=== PATIENT | female | born 1965 | race American Indian/Alaskan Native ===

== ENCOUNTER 2016-06-14 09:30 | Emergency (ER) | payer BC ==
[2016-06-14 10:44] LABS: Basophils % (Auto) 1.2 % (0.0-1.8); Eosinophils % (Auto) 2.6 % (0.0-4.3); Hematocrit 42.5 % (30.3-42.9); Hemoglobin 13.9 gm/dl (10.1-14.3); Mean Corpuscular HGB Conc 33 % (30-34); Mean Corpuscular Hemoglobin 28 pg (28-32); Mean Corpuscular Volume 85 fl (79-97); Platelet Count 286 K/mm3 (140-440); Red Blood Count 4.99 M/mm3 (3.65-5.03); Red Cell Distribution Width 13.4 % (13.2-15.2); White Blood Count 4.1 K/mm3 (4.5-11.0)
[2016-06-14] MEDS ORDERED: MORPHINE IV ONE (11:01)
[2016-06-14] MEDS ORDERED: APRESOLINE IV ONE (11:01)
--- NOTE | 2016-06-14 11:03 | Cat Scan Report ---
CRANIAL CT SCAN: History: Headache, accelerated hypertension. Serial contiguous axial images were obtained through the cranium. Intravenous contrast material was not administered. The ventricles are normal in size and appearance. There is no mass effect or midline shift. No areas of abnormally increased or decreased attenuation are seen. No mass lesion is seen. The mastoid air cells and visualized portions of the sinuses are normal. IMPRESSION: Cranial CT scan within normal limits.
--- NOTE | 2016-06-14 11:06 | Emergency Department Report ---
HPI - General Chief Complaint: Headache Time Seen by Provider: 06/14/16 10:15 - HPI HPI: 50-year-old Afro[place] female presents to the emergency Department, after driving herself in to be seen, with complaint of a left-sided headache. The patient says that she was feeling "sick" at work that included this headache, some photophobia, left eye blurry vision and some nausea with vomiting. She said that the photophobia and left eye blurry vision occurred while driving here but has since resolved. She no longer has any nausea or vomiting as well. She does continue to have a left-sided headache. She has no past medical history other than hypothyroidism but she is not on any medications for it. Incidentally, the patient presents with very elevated blood pressure but does not have any diagnosed history of hypertension. The patient is a tobacco smoker. She drinks about 2-3 cups of coffee per morning. She did not take anything for symptoms prior to presentation. She does not have a primary care doctor. No recent travel or sick contacts at home. ED Past Medical Hx - Past Medical History Previous Medical History?: No - Surgical History Past Surgical History?: Yes Additional Surgical History: fibroids, hysterectomy - Social History Smoking Status: Current Every Day Smoker Substance Use Type: None - Medications Home Medications: Home Medications Medication Instructions Recorded Confirmed Last Taken Type amLODIPine [Norvasc] 5 mg PO DAILY #30 tab 06/14/16 Unknown Rx ED Review of Systems ROS: Stated complaint: LEFT SIDE OF HEAD PAIN Other details as noted in HPI Comment: All other systems reviewed and negative Constitutional: denies: chills, fever Eyes: vision change. denies: eye discharge ENT: denies: ear pain, throat pain Respiratory: denies: cough, shortness of breath, wheezing Cardiovascular: denies: chest pain, palpitations Gastrointestinal: nausea, vomiting. denies: abdominal pain, diarrhea Genitourinary: denies: urgency, dysuria, discharge Musculoskeletal: denies: back pain, joint swelling, arthralgia Skin: denies: rash, lesions Neurological: weakness. denies: headache, paresthesias Physical Exam - Physical Exam Vital Signs: Vital Signs 06/14/16 06/14/16 09:52 10:16 Temperature 98.0 F Pulse Rate 77 Respiratory 22 16 Rate Blood Pressure 233/117 O2 Sat by Pulse 99 99 Oximetry Physical Exam: GENERAL: The patient is well-developed well-nourished. HEENT: Normocephalic. Atraumatic. Extraocular motions are intact. Patient has moist mucous membranes. Pupils equal reactive to light bilaterally. No nystagmus. NECK: Supple. Trachea is midline. CHEST/LUNGS: Clear to auscultation. There is no respiratory distress noted. HEART/CARDIOVASCULAR: Regular. There is no tachycardia. There is no gallop rub or murmur. ABDOMEN: Abdomen is soft, nontender. Patient has normal bowel sounds. There is no abdominal distention. SKIN: Skin is warm and dry. NEURO: The patient is awake, alert, and oriented. The patient is cooperative. The patient has no focal neurologic deficits. The patient has normal speech. Cranial nerves II through XII grossly intact. No pronator drift. No dysmetria. MUSCULOSKELETAL: There is no tenderness or deformity. There is no limitation range of motion. There is no evidence of acute injury. Muscle strength 5 out of 5 for upper and lower extremity bilaterally. ED Course Vital Signs 06/14/16 06/14/16 09:52 10:16 Temperature 98.0 F Pulse Rate 77 Respiratory 22 16 Rate Blood Pressure 233/117 O2 Sat by Pulse 99 99 Oximetry ED Medical Decision Making - Lab Data Result diagrams: 06/14/16 10:36 06/14/16 10:36 - Radiology Data Radiology results: report reviewed CT of the head does not show any acute process including no hemorrhage, mass, shift, diffuse edema or skull fracture. - Medical Decision Making 50-year-old female presents with the complaint of a left-sided headache that started this morning and was associated with some nausea and vomiting and some transient blurry vision. Patient presents with very elevated blood pressure. A CT was done that does not show any bleed, shift, mass or any acute process. She was given a dose of hydralazine and a small amount of pain medication. Patient's labs are unremarkable including no signs of infection, electrolyte abnormalities, renal insufficiency and she has normal thyroid function. Upon reevaluation her blood pressure is much more reasonable and her headache has resolved. Discussed with the patient about dietary changes and smoking cessation to help with her blood pressure but she will also be started on some medium dose Norvasc. The patient will take these medications acutely. Pressure log. She will return to the ER with any worsening of her symptoms or any acute distress. - Differential Diagnosis hypertensive crisis, migraine headache, tension headache, brain bleed Critical Care Time: No Critical care attestation.: If time is entered above; I have spent that time in minutes in the direct care of this critically ill patient, excluding procedure time. ED Disposition Clinical Impression: Hypertensive urgency, Tobacco abuse Headache Qualifiers: Headache type: unspecified Headache chronicity pattern: unspecified pattern Intractability: not intractable Qualified Code(s): R51 - Headache Disposition: DISCHARGED TO HOME OR SELFCARE Is pt being admited?: No Condition: Stable Instructions: How to Stop Smoking (ED), Acute Headache (ED), Hypertension (ED) Additional Instructions: Please follow-up with a primary care doctor in the next few days. Please try and quit smoking as there is no health benefit to tobacco use. Try to stay away from foods that are high in salt and caffeinated products to help with your blood pressure. Keep a blood pressure log. I started drawn a blood pressure medication: Norvasc, to be taken once per day. Return to the emergency department with any worsening of your symptoms or any acute distress. Prescriptions: amLODIPine [Norvasc] 5 mg PO DAILY #30 tab Referrals: PRIMARY CARE, [Primary Care Provider] - 3-5 Days ISMAEL HUMPHREY MD [Staff Physician] - 3-5 Days CL KNOWLES MD [Staff Physician] - 3-5 Days IRIS VIEIRA MD [Staff Physician] - 3-5 Days Time of Disposition: 13:10
[2016-06-14 11:21] LABS: Anion Gap 17 mmol/L; Blood Urea Nitrogen 10 mg/dL (7-17); Calcium 9.9 mg/dL (8.4-10.2); Carbon Dioxide 26 mmol/L (22-30); Chloride 103.9 mmol/L (98-107); Glucose 97 mg/dL (65-100); Potassium 3.4 mmol/L (3.6-5.0); Sodium 143 mmol/L (137-145)
[2016-06-14] MEDS ORDERED: MORPHINE ONE (11:48)
[2016-06-14 12:30] VITALS: BP 175/96
== END 2016-06-14 13:29 | disposition home or self-care (01) ==
LOC: ED 09:30
DX: R03.0 Elevated blood-pressure reading, without diagnosis of hypertension (principal); R51 Headache; F17.200 Nicotine dependence, unspecified, uncomplicated
CPT/HCPCS: 36415; 70450; 80048; 84443; 85025; 93005; 93010; 96374; 96375; 99284; J0360; J2270

== ENCOUNTER 2021-04-17 12:59 | Emergency (ER) | payer SELFPAY ==
[2021-04-17] MEDS ORDERED: ASPIRIN 325 MG TAB PO ONE (13:27)
--- NOTE | 2021-04-17 13:30 | Event Note ---
ED Screening Note Date of service: 04/17/21 Time: 13:29 ED Screening Note: 55-year-old -[place] female presents to the emergency room by referral from her primary care provider. Primary care provider is concerned for chest discomfort elevated blood pressure and abnormal EKG. It was reported the patient has not been followed by healthcare provider in the last 5 to 7 years. Patient currently takes no medications on a daily basis. Blood pressure in PCP office was 200/98. This initial assessment/diagnostic orders/clinical plan/treatment(s) is/are subject to change based on patients health status, clinical progression and re- assessment by fellow clinical providers in the ED. Further treatment and workup at subsequent clinical providers discretion. Patient/guardian urged not to elope from the ED as their condition may be serious if not clinically assessed and managed. Initial orders include: Chest pain protocol has been initiated.
[2021-04-17] MEDS ORDERED: hydrALAZINE 20 MG/1 ML INJ IV ONE (14:09)
[2021-04-17 14:10] LABS: INR 0.85 (0.87-1.13)
[2021-04-17 14:11] LABS: Hematocrit 42.2 % (30.3-42.9); Hemoglobin 13.6 gm/dl (10.1-14.3); Mean Corpuscular HGB Conc 32 % (30-34); Mean Corpuscular Volume 88 fl (79-97); Platelet Count 346 K/mm3 (140-440); Red Blood Count 4.82 M/mm3 (3.65-5.03); Red Cell Distribution Width 13.4 % (13.2-15.2)
--- NOTE | 2021-04-17 14:14 | XRay Report ---
CHEST 1 VIEW 04/17/2021 1:37 PM INDICATION / CLINICAL INFORMATION: Chest Pain. COMPARISON: None available. FINDINGS: SUPPORT DEVICES: None. HEART / MEDIASTINUM: No significant abnormality. LUNGS / PLEURA: No significant pulmonary abnormality. No significant pleural effusion. No pneumothora x. ADDITIONAL FINDINGS: No significant additional findings. IMPRESSION: 1. No acute abnormality of the chest. Signer Name: Donnie Wallis MD Signed: 04/17/2021 2:09 PM Workstation Name: [id number]
[2021-04-17 14:26] LABS: Alanine Aminotransferase 10 units/L (7-56); Albumin 4.5 g/dL (3.9-5); BUN/Creatinine Ratio 17; Blood Urea Nitrogen 10 mg/dL (7-17); Calcium 10.4 mg/dL (8.4-10.2); Hemolysis Index 7
[2021-04-17 14:55] LABS: Total Cells Counted 100
[2021-04-17 14:56] LABS: Platelet Estimate Consistent w Auto; RBC Morphology Normal
[2021-04-17 16:10] LABS: Amphetamine Screen,Urine Negative; Benzodiazepines Screen,Urine Negative; Cocaine Screen,Urine Negative; Methadone Screen,Urine Negative; Opiate Screen,Urine Negative
--- NOTE | 2021-04-17 16:30 | Emergency Department Report ---
ED General Adult HPI - General Chief complaint: Chest Pain Stated complaint: HBP Time Seen by Provider: 04/17/21 13:33 Source: patient Mode of arrival: Ambulatory Limitations: No Limitations - History of Present Illness Initial comments: Sent her by PCP due to elevated B/P -: Gradual, days(s) Severity scale (0 -10): 0 Associated Symptoms: denies: denies other symptoms, confusion, chest pain, cough, diaphoresis, headaches, loss of appetite, malaise Treatments Prior to Arrival: none - Related Data Previous Rx's Medication Instructions Recorded Last Taken Type amLODIPine [Norvasc] 5 mg PO DAILY #30 tab 06/14/16 Unknown Rx amLODIPine 5 mg PO DAILY #30 tab 04/17/21 Unknown Rx Allergies Allergy/AdvReac Type Severity Reaction Status Date / Time No Known Allergies Allergy Unverified 06/14/16 09:58 ED Review of Systems ROS: Stated complaint: HBP Other details as noted in HPI Constitutional: denies: chills, fever Eyes: denies: eye pain, eye discharge, vision change ENT: denies: ear pain, throat pain Respiratory: denies: cough, shortness of breath, wheezing Cardiovascular: denies: chest pain, palpitations Endocrine: no symptoms reported Gastrointestinal: denies: abdominal pain, nausea, diarrhea Genitourinary: denies: urgency, dysuria, discharge Musculoskeletal: denies: back pain, joint swelling, arthralgia Skin: denies: rash, lesions Neurological: denies: headache, weakness, paresthesias Psychiatric: denies: anxiety, depression Hematological/Lymphatic: denies: easy bleeding, easy bruising ED Past Medical Hx - Past Medical History Previous Medical History?: No - Surgical History Additional Surgical History: fibroids, hysterectomy - Social History Smoking Status: Never Smoker Substance Use Type: None - Medications Home Medications: Home Medications Medication Instructions Recorded Confirmed Last Taken Type amLODIPine [Norvasc] 5 mg PO DAILY #30 tab 06/14/16 Unknown Rx amLODIPine 5 mg PO DAILY #30 tab 04/17/21 Unknown Rx ED Physical Exam - General Limitations: No Limitations General appearance: alert, in no apparent distress - Head Head exam: Present: atraumatic, normocephalic - Eye Eye exam: Present: normal appearance - ENT ENT exam: Present: mucous membranes moist - Neck Neck exam: Present: normal inspection - Respiratory Respiratory exam: Present: normal lung sounds bilaterally. Absent: respiratory distress - Cardiovascular Cardiovascular Exam: Present: regular rate, normal rhythm. Absent: systolic murmur, diastolic murmur, rubs, gallop - GI/Abdominal GI/Abdominal exam: Present: soft, normal bowel sounds - Extremities Exam Extremities exam: Present: normal inspection - Back Exam Back exam: Present: normal inspection - Neurological Exam Neurological exam: Present: alert, oriented X3 - Psychiatric Psychiatric exam: Present: normal affect, normal mood - Skin Skin exam: Present: warm, dry, intact, normal color. Absent: rash ED Course Vital Signs 04/17/21 04/17/21 04/17/21 13:29 13:39 13:45 Temperature 98.2 F Pulse Rate 72 74 65 Respiratory 20 14 11 L Rate Blood Pressure 177/100 Blood Pressure 85/56 [Right] O2 Sat by Pulse 98 100 Oximetry 04/17/21 04/17/21 04/17/21 14:01 14:10 14:13 Temperature Pulse Rate 62 67 Respiratory 14 Rate Blood Pressure 169/90 Blood Pressure [Right] O2 Sat by Pulse 100 100 Oximetry 04/17/21 04/17/21 04/17/21 14:15 14:31 14:45 Temperature Pulse Rate 66 63 65 Respiratory 20 18 16 Rate Blood Pressure 177/78 165/83 174/86 Blood Pressure [Right] O2 Sat by Pulse 100 98 100 Oximetry 04/17/21 04/17/21 04/17/21 15:01 15:15 15:34 Temperature Pulse Rate 59 L 64 Respiratory 21 15 Rate Blood Pressure 156/80 177/86 177/86 Blood Pressure [Right] O2 Sat by Pulse 100 99 97 Oximetry - Reevaluation(s) Reevaluation #1: 04/17/21 16:28 work up neg , labetalol given with BP 170/77 , no chets pain no sob ED Medical Decision Making - Lab Data Result diagrams: 04/17/21 13:29 04/17/21 13:06 Critical care attestation.: If time is entered above; I have spent that time in minutes in the direct care of this critically ill patient, excluding procedure time. ED Disposition Clinical Impression: Uncontrolled hypertension, Hypertensive urgency Disposition: 01 HOME / SELF CARE / HOMELESS Is pt being admited?: No Does the pt Need Aspirin: No Condition: Stable Instructions: Hypertension (ED), Preventing Hypertension
[2021-04-17 16:31] LABS: Cannabinoid Screen,Urine Positive
[2021-04-17 16:54] VITALS: BP 155/77
--- NOTE | 2021-04-18 09:38 | Electrocardiograph Report ---
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
== END 2021-04-17 17:05 | disposition home or self-care (01) ==
LOC: ED 12:59
DX: I10 Essential (primary) hypertension (principal); I16.0 Hypertensive urgency; Z79.899 Other long term (current) drug therapy
CPT/HCPCS: 36415; 71045; 80053; 80307; 82550; 83690; 83880; 84484; 85007; 85025; 85610; 93005; 93010; 96374; 99284; J3490